=== PATIENT | female | born 1975 ===

== ENCOUNTER 2018-09-13 13:48 | Emergency (ER) | payer BC ==
--- NOTE | 2018-09-13 14:40 | UC ---
Laceration HPI - HPI Summary HPI Summary: 43 y/o female presents to the urgent care accompany by c/o left forearm laceration on his left arm s/p trying to cut a cheese package w/ a kitchen knife about 1 hr ago. Pt reports bleeding stopped w/ pressure. Pt is 10 weeks . Pt report her last Tetanus vaccine was in 03/2013. declines a booster. Pt can move her left arm and fingers w/o any difficulty. Pain is 4/10 at touch. Pt denies fever, numbness or tingling sensation, SOB, chest pain abdominal pain, N/V/D. - History Of Current Complaint Chief Complaint: UCLaceration Stated Complaint: LAC ON ARM Time Seen by Provider: 09/13/18 14:38 Hx Obtained From: Patient Laceration Location: Arm - left forearm laceration w/ a kitchen knife. Mechanism Of Injury: Sharp Trauma Onset/Duration: Sudden Onset, Gradual Onset - hrs ago, Still Present Severity: Mild Pain Intensity: 4 Pain Scale Used: 0-10 Numeric Aggravating Factors: Other: - touch Related History: Dominant Hand Right - Allergies/Home Medications Allergies/Adverse Reactions: Allergies Allergy/AdvReac Type Severity Reaction Status Date / Time No Known Allergies Allergy Verified 09/13/18 14:11 PMH/Surg Hx/FS Hx/Imm Hx Previously Healthy: Yes - Pt denies PMHX - Surgical History Surgical History: None - Family History Known Family History: Positive: None - Pt denies FMHX - Social History Occupation: Unemployed Lives: With Family Alcohol Use: None Substance Use Type: None Smoking Status (MU): Never Smoked Tobacco - Immunization History Hx Tetanus, Diphtheria Vaccination: Yes - 03/2013 Vaccination Up to Date: Yes Review of Systems All Other Systems Reviewed And Are Negative: Yes Constitutional: Positive: Negative Skin: Positive: Other - laceration of left forearm about 2hrs Eyes: Positive: Negative ENT: Positive: Negative Respiratory: Positive: Negative Cardiovascular: Positive: Negative Gastrointestinal: Positive: Negative Genitourinary: Positive: Negative Motor: Positive: Negative Neurovascular: Positive: Negative Musculoskeletal: Positive: Other: - left forearm pain Neurological: Positive: Negative Psychological: Positive: Negative Is Patient Immunocompromised?: No Physical Exam - Summary Physical Exam Summary: Vital Signs Reviewed: Yes General: well developed, well nourished female sitting in the examining table w/o any apparent distress Eye Exam: Normal Eyes: Positive: Conjunctiva Clear - PERRLA, EOMI, fundi grossly normal ENT: Positive: Normal ENT inspection, Hearing grossly normal, Pharynx normal, TMs normal Neck: Positive: Supple, Nontender, No Lymphadenopathy Respiratory: Positive: Chest non-tender, Lungs clear, Normal breath sounds, No respiratory distress Cardiovascular: Positive: RRR, No Murmur, Pulses Normal, Brisk Capillary Refill Abdomen Description: Positive: Nontender, No Organomegaly, Soft. Negative: CVA Tenderness (R), CVA Tenderness (L) Bowel Sounds: Positive: Present Musculoskeletal: Positive: Strength Intact, ROM Intact, No Edema Neurological: Positive: Alert, Muscle Tone Normal Psychological Exam: Normal Skin: Positive: Ventral side of the left forearm w/ a linear superficial laceration about 1.cm in size, bleeding, no foreign body observed. mild tenderness to palpation, mild ecchymosis around elbow. FROM of RT arm, sensation intact, capillary refill brisk, and pulses WNL. Triage Information Reviewed: Yes Vital Signs: Initial Vital Signs Temp 98.1 F 09/13/18 14:08 Pulse 69 09/13/18 14:08 Resp 12 09/13/18 14:08 BP 115/70 09/13/18 14:08 Pulse Ox 100 09/13/18 14:08 Laceration Repair - Laceration Repair 1 Description: Linear - superficial linear laeration on ventral side of the left forearm Laceration Size After Repair: Length (cm) - 1.3cm Modified For Repair: No Type Injection: Local Anesthesia Used: 1.0% Lido - 1 ml Cleansing Completed Via Routine Prep: Yes Irrigation With Pressure Irrigation Device: Yes Closure Material: Sutures - 5.0 Closure Method: Single Layer Suture Of: Skin, SQ Suture Type: Nylon Laceration Course/Dx - Course/Dx Course Of Treatment: 43 y/o female presents to the urgent care accompany by c/o left forearm laceration on his left arm s/p trying to cut a cheese package w/ a kitchen knife about 1 hr ago. Pt reports bleeding stopped w/ pressure. Pt is 10 weeks . Pt report her last Tetanus vaccine was in 03/2013. declines a booster. Pt can move her left arm and fingers w/o any difficulty. Pain is 4/10 at touch. Pt denies fever, numbness or tingling sensation, SOB, chest pain abdominal pain, N/V/D. Hx obtained. Pt w/ a superficial linear laceration on the ventral side of left forearm about 1.3cm in siza, FROM of left arm on examination. LACERATION PROCEDURE NOTE: . Copious irrigation was done with saline by the nurse and the wound explored. There was no FB or deep structure injury noted. FROM of left forearm. procedure was explained and consent obtained, Timeout performed. The wound was anesthetized with 1mL of 1 % lido with good anesthesia. Sterile drape and prep were don. There were 3 sutures with 5.0 nylon type of suture. The length of the wound after closure was 1.3cm. No debridement done. Pt tolerated the procedure well without adverse effects. Neurovascular intact and FROM. Tdap ordered and applied by nurse. Pt advised to f/u suture removal in 10-12 days and if any signs of infection develop to immediately return to the urgent care of PCP for further management and treatment. Pt understood and agreed and left the clinic ambulating A&Ox3. - Differential Dx - Laceration/Wound Differental Diagnoses: Abrasion, Avulsion, Cellulitis, Laceration, Puncture Wound, Tendon Laceration - Diagnosis Provider Diagnosis: Laceration of left forearm Discharge - Sign-Out/Discharge Documenting (check all that apply): Patient Departure - d/c home All imaging exams completed and their final reports reviewed: No Studies - Discharge Plan Condition: Stable Disposition: HOME Patient Education Materials: Care For Your Stitches (ED), Laceration (ED) Referrals: Maggy Ma MD [Primary Care Provider] - 1 Week Additional Instructions: 1-Please apply triple antibitic topical antibiotic over the wound. Keep wound clean and dry 2- F/u suture removal in 10-12 days days w/ your PCP or here at the urgent care. 3-Take Tylenol PO q6-8hrs prn for pain or swelling. 4- If you develop fever or redness around laceration please return to the Urgent care. - Billing Disposition and Condition Condition: STABLE Disposition: Home
[2018-09-13] MEDS ORDERED: Lidocaine 1%* 5 ML VIAL INJ ONE (14:58)
== END 2018-09-13 15:39 | disposition home or self-care (01) ==
LOC: UCEAST 13:48
DX: S51.812A Laceration without foreign body of left forearm, initial encounter (principal); W26.0XXA Contact with knife, initial encounter; Y92.9 Unspecified place or not applicable
CPT/HCPCS: 12001; 99201; G0463

== ENCOUNTER 2018-09-24 13:14 | Emergency (ER) | payer BC ==
--- NOTE | 2018-09-24 13:47 | UC ---
HPI Wound/Suture Re-check - HPI Summary HPI Summary: 43 y/o female presents to the urgent care requesting suture removal on her left forearm. Pt reports sutures were placed here on 09/13/2018. wound has been healing well. Pt denies fever, drainage, numbness or tingling sensation over the left arm, chest pain., SOB, abdominal pain, N/V/d. - History Of Current Complaint Chief Complaint: UCLaceration Stated Complaint: SUTURE REMOVAL Time Seen by Provider: 09/24/18 13:39 Hx Obtained From: Patient Onset/Duration: Sudden Onset, Lasting Weeks - 10 days ago, Resolved Severity: Mild Pain Intensity: 2 Pain Scale Used: 0-10 Numeric Surgery Date: 09/13/18 - ventral side of left forearm - Allergies/Home Medications Allergies/Adverse Reactions: Allergies Allergy/AdvReac Type Severity Reaction Status Date / Time No Known Allergies Allergy Verified 09/24/18 13:34 Home Medications: Home Medications Vit 10/Iron/Folic/Dha [Vitafol-Ob+Dha Combo Pack] 1 tab PO DAILY [History Confirmed 09/24/18] Pyridoxine TAB* [Vitamin B6 TAB*] 1 tab PO DAILY 09/24/18 [History Confirmed ] PMH/Surg Hx/FS Hx/Imm Hx Previously Healthy: Yes - Pt denies PMHX - Surgical History Surgical History: None - Family History Known Family History: Positive: None - Pt denies FMHX - Social History Occupation: Unemployed Lives: With Family Alcohol Use: None Substance Use Type: None Smoking Status (MU): Never Smoked Tobacco - Immunization History Most Recent Tetanus Shot: not sure Hx Tetanus, Diphtheria Vaccination: Yes - 03/2013 Vaccination Up to Date: Yes Review of Systems All Other Systems Reviewed And Are Negative: Yes Constitutional: Positive: Negative Skin: Positive: Other - laceration on left forearm healing well w/ [address]. Eyes: Positive: Negative ENT: Positive: Negative Respiratory: Positive: Negative Cardiovascular: Positive: Negative Gastrointestinal: Positive: Negative Genitourinary: Positive: Negative Motor: Positive: Negative Neurovascular: Positive: Negative Musculoskeletal: Positive: Negative Neurological: Positive: Negative Psychological: Positive: Negative Is Patient Immunocompromised?: No Physical Exam Triage Information Reviewed: Yes Appearance: Well-Appearing, No Pain Distress, Well-Nourished - female Vital Signs: Initial Vital Signs Temp 99.3 F 09/24/18 13:30 Pulse 81 09/24/18 13:30 Resp 18 09/24/18 13:30 BP 129/92 09/24/18 13:30 Pulse Ox 99 09/24/18 13:30 Vital Signs Reviewed: Yes Eye Exam: Normal ENT Exam: Normal Dental Exam: Normal Neck exam: Normal Respiratory Exam: Normal Cardiovascular Exam: Normal Abdominal Exam: Normal Bowel Sounds: Positive: Present Musculoskeletal Exam: Normal Neurological Exam: Normal Psychological Exam: Normal Skin: Positive: Other - Ventral side of left forearm w/ a laceration Wound healing well with crusting and moderate granulation over, non tender to palpation, [address] FROM of left arm, senation WNL, capillary refil brisk, pulses WNL. Course/Dx - Course Course Of Treatment: 43 y/o female presents to the urgent care requesting suture removal on her left forearm. Pt reports sutures were placed here on 09/13/2018. wound has been healing well. Pt denies fever, drainage, numbness or tingling sensation over the left arm, chest pain., SOB, abdominal pain, N/V/d. Hx obtained. Wound healing well with crusting and moderate granulation over, non tender to palpation, [address] 3 sutures removed w/o any difficulty. Pt tolerated well procedure. wound cleaned with sterile water and bacitracin applied over and cover with sterile gauze. Pt advised if redness, pain or fever develops to return to the urgent care or f/u with PCP for further treatment. Pt' s BP elevated today, advised to decrease salt in diet and monitor BP, and f/u with PCP. Pt understood and agreed with plan of care - Differential Dx - Laceration/Wound Differential Diagnoses: Cellulitis, Healing Wound, Suture Removal - Diagnosis Provider Diagnosis: Encounter for removal of sutures Discharge - Sign-Out/Discharge Documenting (check all that apply): Patient Departure - d/c home All imaging exams completed and their final reports reviewed: No Studies - Discharge Plan Condition: Stable Disposition: HOME Patient Education Materials: Acute Wound Care (ED) Referrals: Maggy Ma MD [Primary Care Provider] - If Needed Additional Instructions: 1-Please apply topical antibiotic over the wound. Keep wound clean and dry 2- If you develop fever or redness around wound please return to the Urgent care of f/u w/ your PCP for further management. 3- Your BP is elevated today. please decrease salt in your diet, monitor BP and if it continues to be elevated please f/u with your PCP for further management. - Billing Disposition and Condition Condition: STABLE Disposition: Home
== END 2018-09-24 13:56 | disposition home or self-care (01) ==
LOC: UCEAST 13:14
DX: Z48.02 Encounter for removal of sutures (principal)